=== PATIENT | male | born 1990 | race Caucasian/White ===

== ENCOUNTER 2019-01-18 04:55 | Inpatient (IN) | payer OTHER ==
[~2019-01-18] VITALS: Ht 167.6 cm; Wt 78.0 kg
[~2019-01-18 04:55] MED LIST: ACULAR 3 ML3 M1 OP; BACTRIM DS 8001 TA1 PO; CIPRO500 MG PO; TRAMADOL HCL50 MG PO
[2019-01-18 04:56] VITALS: BP 109/70
--- NOTE | 2019-01-18 05:53 | NUR ---
PT REPORTS HE IS UNABLE TO URINATE AT THIS TIME. PT GIVEN URINE CUP.
[2019-01-18 05:58] LABS: MEAN CELL VOLUME 92.8 fl (80.0-94.0); MEAN CORPUSCULAR HGB 31.6 pg (27.0-31.0); MEAN CORPUSCULAR HGB CONC 34.1 g/dl (33.0-37.0); MEAN PLATELET VOLUME 10.8 fl (9.6-12.3); PLATELET COUNT AUTOMATED 269 10*3/uL (130-400); RED BLOOD COUNT 4.74 10*6/uL (4.50-5.90); RED CELL DISTRI WIDTH 11.7 % (0-14.5); WHITE BLOOD COUNT 18.2 10*3/uL (4.8-10.8)
[2019-01-18 06:05] LABS: ALBUMIN 3.5 gm/dl (3.1-4.5); ALKALINE PHOSPHATASE 94 U/L (45-117); BUN 6 mg/dl (7-24); CHLORIDE 101 mmol/L (98-107); CREATININE 0.89 mg/dL (0.70-1.30); POTASSIUM 3.3 mmol/L (3.5-5.1); SGOT/AST 41 IU/L (3-35); SGPT/ALT 50 U/L (12-78); SODIUM 136 mmol/L (136-145); TOTAL PROTEIN 7.7 gm/dL (6.4-8.2)
[2019-01-18 06:22] LABS: PLATELET SUFFICIENCY NORMAL (NORMAL); TOTAL CELLS COUNTED 100 #CELLS
--- NOTE | 2019-01-18 07:10 | NUR ---
recieved report herbie took over careatthis time
[2019-01-18 07:31] LABS: BILIRUBIN NEGATIVE (NEGATIVE); BLOOD NEGATIVE (NEGATIVE); CLARITY CLEAR (CLEAR); COLOR YELLOW (YELLOW); GLUCOSE 1+ (NEGATIVE); KETONE NEGATIVE (NEGATIVE); LEUKO ESTERASE NEGATIVE (NEGATIVE); NITRITE NEGATIVE (NEGATIVE); PH 6.5 (5.0-9.0)
--- NOTE | 2019-01-18 07:39 | NUR ---
pt resting in bedwaitingon ct voices no complaints at this time family at bedside. call light in reach
[2019-01-18 07:46] LABS: EPITHELIAL CELLS 0-2; WBC 0-2 wbc/hpf (0-5)
--- NOTE | 2019-01-18 08:19 | NUR ---
linnea asked ctwhat the hold up is and ct is down at this time jefferson notified
--- NOTE | 2019-01-18 08:28 | NUR ---
PT TO CT AT THIS TIME
--- NOTE | 2019-01-18 09:06 | NUR ---
PT BACK IN ROOM FAMILY AT BEDSIDE TORODOL HAS HELPED PAIN A LITTLE PER PT DR ISIDRO NOTIFIED.
[2019-01-18 09:51] VITALS: BP 103/60
--- NOTE | 2019-01-18 10:00 | NUR ---
IVZOSYNINFUSING WHEN PT TAKEN TO FLOOR
[2019-01-18 10:14] VITALS: BP 105/60
--- NOTE | 2019-01-18 10:29 | NUR ---
[facility] , under the services of GAVI Bellamy DO with a diagnosis of COLITIS . Chief complaint is ABDM PAIN. Patient arrived via ambulatory from ER. Monitor applied. Initial assessment completed. Vital signs taken and recorded. GAVI BELLAMY DO notified of admission to the unit. Orders received. See assessment for past medical history, medications and allergies. Patient and/or family oriented to unit. [facility] visitation policy reviewed. Clothing/patient valuable form completed. MANDY CAVANAUGH
--- NOTE | 2019-01-18 10:53 | NUR ---
NOTIFIED DR. WILCOX OF CONSULT.
--- NOTE | 2019-01-18 11:37 | NUR ---
DR. RESE NOTIFIED OF CONSULT.
--- NOTE | 2019-01-18 13:51 | NUR ---
morphine given for c/o of abdm. pain. rates 6/10 on pain scale. will monitor.
--- NOTE | 2019-01-18 14:54 | NUR ---
JOJO EFFECTIVE PER PT.
[2019-01-18 16:00] VITALS: BP 97/50
--- NOTE | 2019-01-18 19:30 | NUR ---
PT AWAKE AND SITTING UP ON THE EDGE OF THE BED AT THIS TIME. HE STATES THAT HE IS STILL EXPERIENCING ABDOMINAL PAIN. PATIENT EDUCATED ON PRN MEDICATIONS, WILL MEDICATE PER ORDER. BS ARE HYPERACTIVE, RESPS EASY AND NONLABORED. NO OTHER S/S OF DISTRESS NOTED. BED IS LOW, CALL LIGHT WITHIN REACH. WILL CONTINUE TO MONITOR.
--- NOTE | 2019-01-18 19:53 | NUR ---
PT MEDICATED WITH PRN MORPHINE FOR C/O ABDOMINAL PAIN RATED A 9/10. WILL MONITOR FOR EFFECTIVENESS.
[2019-01-18 20:00] VITALS: BP 117/59
--- NOTE | 2019-01-18 20:04 | NUR ---
24 HR CHART CHECK COMPLETE.
--- NOTE | 2019-01-18 22:44 | NUR ---
24 HR chart check completed.
--- NOTE | 2019-01-18 22:45 | NUR ---
PT RESTING IN BED, RESPIRATIONS EASY AND UNLABORED ON ROOM AIR. IV FLUIDS INFUSING PER ORDERS. SAFETY MEASURES IN PLACE. CALL LIGHT IN REACH.
[2019-01-19] VITALS: BP 111/65
--- NOTE | 2019-01-19 01:12 | NUR ---
PT GIVEN 2 MG MORPHINE AT THIS TIME FOR C/O ABDOMINAL PAIN, RATING PAIN A 7 ON 1-10 SCALE. WILL MONITOR FOR EFFECTIVENESS. CALL LIGHT IN REACH.
--- NOTE | 2019-01-19 02:12 | NUR ---
MORPHINE EFFECTIVE PER PT.
--- NOTE | 2019-01-19 06:03 | NUR ---
MORPHINE GIVEN FOR C/O ABDOMINAL PAIN. PT RATES PAIN 7. WILL MONITOR FOR EFFECTIVENESS. CALL LIGHT IN REACH.
--- NOTE | 2019-01-19 06:50 | NUR ---
MORPHINE EFFECTIVE PER PT.
[2019-01-19 07:49] LABS: BASO % 0.2 % (0.0-1.0); EOS % 0.2 % (1.0-4.0); HEMATOCRIT 40.7 % (42.0-52.0); HEMOGLOBIN 13.7 g/dl (14.0-18.0); LYMPH # 0.9 10*3/uL (1.3-4.4); LYMPH % 7.2 % (27.0-41.0); MEAN CELL VOLUME 95.3 fl (80.0-94.0); MEAN CORPUSCULAR HGB 32.1 pg (27.0-31.0); MEAN CORPUSCULAR HGB CONC 33.7 g/dl (33.0-37.0); MEAN PLATELET VOLUME 10.5 fl (9.6-12.3); MONO # 1.1 10*3/uL (0.1-1.0); MONO % 8.5 % (3.0-9.0); NEUT # 10.5 10*3/uL (2.3-7.9); NEUT % 83.7 % (47.0-73.0); PLATELET COUNT AUTOMATED 245 10*3/uL (130-400); RED BLOOD COUNT 4.27 10*6/uL (4.50-5.90); WHITE BLOOD COUNT 12.6 10*3/uL (4.8-10.8)
[2019-01-19 08:00] VITALS: BP 104/68
[2019-01-19 08:17] LABS: ALKALINE PHOSPHATASE 78 U/L (45-117); BUN 3 mg/dl (7-24); CHLORIDE 103 mmol/L (98-107); CHOLESTEROL 145 mg/dL (<200); CREATININE 0.63 mg/dL (0.70-1.30); FREE T4 1.25 ng/dl (0.76-1.46); HDL CHOLESTEROL 21 mg/dl (40-60); LDL CHOLESTEROL 99 mg/dL (9-159); POTASSIUM 3.4 mmol/L (3.5-5.1); SGOT/AST 12 IU/L (3-35); SGPT/ALT 33 U/L (12-78); SODIUM 136 mmol/L (136-145); TOTAL PROTEIN 7.1 gm/dL (6.4-8.2); TRIGLYCERIDES 123 mg/dl (<150); VLDL CHOLESTEROL 25 mg/dL (6-40)
[2019-01-19 08:42] LABS: VITAMIN D, 25-HYDROXY 13.2 ng/mL (30-100)
--- NOTE | 2019-01-19 10:10 | NUR ---
MORPHINE 2 MG GIVEN FOR C/O ABD PAIN,08/15.
[2019-01-19 12:00] VITALS: BP 107/63
--- NOTE | 2019-01-19 12:37 | NUR ---
ZOFRAN 4 MG GIVEN FOR NAUSEA. TYLENOL 650 MG GIVEN FOR TEMP OF 100.4.
--- NOTE | 2019-01-19 14:10 | NUR ---
MORPHINE 2 MG GIVEN FOR C/O PAIN,08/15.
[2019-01-19 16:00] VITALS: BP 102/59
--- NOTE | 2019-01-19 18:09 | NUR ---
MORPHINE 2 MG GIVEN FOR C/O ABD PAIN,09/15.
--- NOTE | 2019-01-19 19:15 | NUR ---
ARRIVED ON SHIFT, INTRODUCED TO PATIENT, NO NEEDS VOICED AT THIS TIME. WHITE BOARD UPDATYED.
[2019-01-19 20:00] VITALS: BP 100/62
--- NOTE | 2019-01-19 22:42 | NUR ---
PATIENT C/O BELLY PAIN OF 6/10 MEDICATED WITH MORPHINE ORDERED.
--- NOTE | 2019-01-19 23:08 | NUR ---
Shift chart check completed.
--- NOTE | 2019-01-19 23:38 | NUR ---
GOOD RELIEF FROM MORPHINE GIVEN X 1 HOUR AGO, EVIDENCED BY PATIENT SLEEPING THROUGHOUT THE NIGHT.
[2019-01-20] VITALS: BP 103/53
--- NOTE | 2019-01-20 02:00 | NUR ---
Patient sleeping. Respirations relaxed and easy. Siderails up x 2. [place] on, bed in low position, call light within reach. DAVID MENDOZA
--- NOTE | 2019-01-20 03:47 | NUR ---
C/O ABDOMINAL PAIN 08/15 MDICATED WITH MORPHINE ORDERED PRN/
--- NOTE | 2019-01-20 04:43 | NUR ---
PATIENT HAS GOOD RELIEF FROM MORPHINE GIVEN X 1 HOUR AGO, EVIDENCED BY HIM RESTING QUIETLY WITH EYES CLOSED.
[2019-01-20 06:16] LABS: BASO % 0.3 % (0.0-1.0); EOS % 0.3 % (1.0-4.0); HEMATOCRIT 38.3 % (42.0-52.0); HEMOGLOBIN 12.8 g/dl (14.0-18.0); LYMPH # 0.8 10*3/uL (1.3-4.4); LYMPH % 7.1 % (27.0-41.0); MEAN CELL VOLUME 94.8 fl (80.0-94.0); MEAN CORPUSCULAR HGB 31.7 pg (27.0-31.0); MEAN CORPUSCULAR HGB CONC 33.4 g/dl (33.0-37.0); MONO # 1.4 10*3/uL (0.1-1.0); MONO % 11.4 % (3.0-9.0); NEUT # 9.6 10*3/uL (2.3-7.9); NEUT % 80.6 % (47.0-73.0); PLATELET COUNT AUTOMATED 250 10*3/uL (130-400); RED BLOOD COUNT 4.04 10*6/uL (4.50-5.90); RED CELL DISTRI WIDTH 12.2 % (0-14.5); WHITE BLOOD COUNT 11.9 10*3/uL (4.8-10.8)
[2019-01-20 06:49] LABS: ALBUMIN 2.5 gm/dl (3.1-4.5); ALKALINE PHOSPHATASE 67 U/L (45-117); BUN 3 mg/dl (7-24); CHLORIDE 104 mmol/L (98-107); CREATININE 0.62 mg/dL (0.70-1.30); POTASSIUM 3.4 mmol/L (3.5-5.1); SGOT/AST 7 IU/L (3-35); SGPT/ALT 21 U/L (12-78); SODIUM 140 mmol/L (136-145); TOTAL PROTEIN 6.4 gm/dL (6.4-8.2)
[2019-01-20 08:00] VITALS: BP 116/69
--- NOTE | 2019-01-20 09:16 | NUR ---
NORCO 5/325 MG GIVEN FOR C/O ABD PAIN,07/16.ZOFRAN 4 MG GIVEN FOR NAUSEA.
[2019-01-20 12:00] VITALS: BP 113/66
[2019-01-20 16:00] VITALS: BP 115/65
[2019-01-20 20:00] VITALS: BP 110/68
--- NOTE | 2019-01-20 20:59 | NUR ---
NORCO AND ZOFRAN GIVEN PER PT REQUEST FOR REPORTED PAIN OF 4/10 ABDOMINAL PAIN/TENDERNESS AND NAUSEA. CALL LIG IN REACH. WILL MONITOR EFFECTIVENESS.
[2019-01-21] VITALS: BP 93/62
[2019-01-21 06:13] LABS: BASO % 0.4 % (0.0-1.0); EOS # 0.1 10*3/uL (0.0-0.4); EOS % 1.4 % (1.0-4.0); HEMATOCRIT 38.7 % (42.0-52.0); LYMPH # 1.1 10*3/uL (1.3-4.4); MEAN CELL VOLUME 93.9 fl (80.0-94.0); MEAN CORPUSCULAR HGB 31.6 pg (27.0-31.0); MEAN CORPUSCULAR HGB CONC 33.6 g/dl (33.0-37.0); MEAN PLATELET VOLUME 10.8 fl (9.6-12.3); MONO # 0.8 10*3/uL (0.1-1.0); MONO % 9.8 % (3.0-9.0); NEUT # 6.2 10*3/uL (2.3-7.9); NEUT % 74.9 % (47.0-73.0); PLATELET COUNT AUTOMATED 291 10*3/uL (130-400); RED BLOOD COUNT 4.12 10*6/uL (4.50-5.90); RED CELL DISTRI WIDTH 12.2 % (0-14.5); WHITE BLOOD COUNT 8.3 10*3/uL (4.8-10.8)
[2019-01-21 06:28] LABS: BUN 3 mg/dl (7-24); CHLORIDE 104 mmol/L (98-107); CREATININE 0.61 mg/dL (0.70-1.30); POTASSIUM 3.1 mmol/L (3.5-5.1); SODIUM 143 mmol/L (136-145)
[2019-01-21 08:00] VITALS: BP 121/68
--- NOTE | 2019-01-21 09:00 | NUR ---
Water Main Inspector in to talk to patient. Patient states lives at home with parents. There are few steps in the home. Physician: none Pharmacy: [facility] Home health services: none Patient's level of ADLs: INDEPENDENT Patient has working utilities: all working DME: none Follow-up physician's appointment after d/c: will be made by hospitalist nurse director upon discharge with doctor of patient's choice Does patient want to access PORTAL?: no Discharge plan discussed with patient, he states he lives at home with parents he is independent in adls and ambulation works, drives, he states he will return home when medically stable and denies any home needs. ALFREDO BHATIA
--- NOTE | 2019-01-21 10:26 | NUR ---
c/o pain of 4/10 to abd. requested norco and zofran at this time. will cont to monitor. call light in reach.
--- NOTE | 2019-01-21 11:26 | NUR ---
brenda and daniela eff. will cont to monitor. call light in reach.
[2019-01-21 12:00] VITALS: BP 107/73
--- NOTE | 2019-01-21 15:10 | NUR ---
C/O PAIN OF 4/10 TO ABD. NORCO GIVEN AT THIS TIME. WILL CONT TO MONITOR. CALL LIGHT IN REACH.
[2019-01-21 16:00] VITALS: BP 117/69
[2019-01-21 20:00] VITALS: BP 113/66
--- NOTE | 2019-01-21 22:50 | NUR ---
ZOFRAN GIVEN PER PATIENT REQUEST FOR COMPLAINTS OF NAUSEA. NORCO GIVEN PER PATIENT REQUEST FOR COMPLAINTS OF STOMACH PAIN RATED 7/10. WILL ASSESS EFFECTIVENESS.
--- NOTE | 2019-01-21 23:45 | NUR ---
ZOGRACE AND NORCO EFFECTIVE PER PATIENT. WILL CONTINUE TO MONITOR.
[2019-01-22] VITALS: BP 119/61
--- NOTE | 2019-01-22 01:39 | NUR ---
Patient resting quietly with no c/o discomfort. Respirations easy and regular. Vital signs stable. No overt distress. NATE GREEN
--- NOTE | 2019-01-22 05:51 | NUR ---
NORCO GIVEN PER PATIENT REQUEST FOR COMPLAINTS OF ABDOMINAL PAIN RATED 7/10. ZOFRAN GIVEN PER PATIENT REQUEST FOR COMPLAINTS OF NAUSEA. WILL ASSESS EFFECTIVENESS.
--- NOTE | 2019-01-22 06:48 | NUR ---
TORIE AND ELADIO EFFECTIVE PER PATIENT. WILL ASSESS EFFECTIVENESS.
[2019-01-22 06:53] LABS: BASO % 0.5 % (0.0-1.0); EOS # 0.1 10*3/uL (0.0-0.4); EOS % 1.6 % (1.0-4.0); HEMATOCRIT 38.9 % (42.0-52.0); HEMOGLOBIN 13.2 g/dl (14.0-18.0); LYMPH # 1.2 10*3/uL (1.3-4.4); LYMPH % 14.7 % (27.0-41.0); MEAN CELL VOLUME 94.9 fl (80.0-94.0); MEAN CORPUSCULAR HGB 32.2 pg (27.0-31.0); MEAN CORPUSCULAR HGB CONC 33.9 g/dl (33.0-37.0); MEAN PLATELET VOLUME 10.4 fl (9.6-12.3); MONO # 0.6 10*3/uL (0.1-1.0); MONO % 7.9 % (3.0-9.0); NEUT # 6.1 10*3/uL (2.3-7.9); NEUT % 75.1 % (47.0-73.0); PLATELET COUNT AUTOMATED 345 10*3/uL (130-400); RED CELL DISTRI WIDTH 12.4 % (0-14.5); WHITE BLOOD COUNT 8.1 10*3/uL (4.8-10.8)
--- NOTE | 2019-01-22 07:05 | NUR ---
ARRIVED ON SHIFT, INTRODUCED TO PATIENT, NO NEEDS VOICED AT THIS TIME, WHITE BOARD UPDATED, REPORT RECEIVED.
[2019-01-22 07:11] LABS: BUN 3 mg/dl (7-24); CHLORIDE 103 mmol/L (98-107); CREATININE 0.66 mg/dL (0.70-1.30); POTASSIUM 3.3 mmol/L (3.5-5.1); SODIUM 141 mmol/L (136-145)
[2019-01-22 08:00] VITALS: BP 117/69
--- NOTE | 2019-01-22 09:00 | NUR ---
case management visits with patient, he stated he would be returning home when medically stable, possibly today and denies any needs
--- NOTE | 2019-01-22 09:16 | NUR ---
NEW ORDER FOR EVA, ADVISED HOSPITALIST THAT PATIENT UNABLE TO SWALLOW, AND CANT CRUSH.
--- NOTE | 2019-01-22 09:25 | NUR ---
Shift chart check completed.
[2019-01-22] MEDS ORDERED: NATURE'S BLEND F1 MG PO (11:55)
[2019-01-22] MEDS ORDERED: VITAMIN D5000 UNI1 PO (11:55)
[2019-01-22] MEDS ORDERED: CIPRO500 MG PO (11:55)
[2019-01-22] MEDS ORDERED: PHARMASSURE V500 MCG PO (11:55)
[2019-01-22] MEDS ORDERED: FLAGYL500 MG PO (11:55)
--- NOTE | 2019-01-22 12:39 | NUR ---
Discharge instructions reviewed with patient/family. Patient receptive and verbalizes understanding. Follow-up care arranged. Written instructions given to patient/family, RETURN TO WORK SLIP PROVIDED, IV REMOVED, REINFORCED KEEPING ALL APPOINTMENTS. DAVID MENDOZA
== END 2019-01-22 12:29 | disposition home or self-care (01) | DRG 872 ==
LOC: ED 04:55 → EDHOLD 09:36 → 4E 09:36
PROVIDERS: Emergency Medicine; Internal Medicine; Internal Medicine Gastroenterology; ADMIT Emergency Medicine
DX: A41.9 Sepsis, unspecified organism (principal); K52.9 Noninfective gastroenteritis and colitis, unspecified; E86.0 Dehydration; R74.0 Nonspecific elevation of levels of transaminase and lactic acid dehydrogenase [LDH]; E87.6 Hypokalemia; R73.9 Hyperglycemia, unspecified; Z80.3 Family history of malignant neoplasm of breast; Z83.79 Family history of other diseases of the digestive system; Z84.89 Family history of other specified conditions

== ENCOUNTER → 2019-02-12 | Outpatient (CLI) | payer OTHER ==
[~2019-02-12] MED LIST changes: +FLAGYL500 MG PO; +NATURE'S BLEND F1 MG PO; +PHARMASSURE V500 MCG PO; +VITAMIN D5000 UNI1 PO
== END | disposition home or self-care (01) ==
LOC: RESCLI 02:23
DX: Z09 Encounter for follow-up examination after completed treatment for conditions other than malignant neoplasm (principal); Z76.89 Persons encountering health services in other specified circumstances; K52.9 Noninfective gastroenteritis and colitis, unspecified; E55.9 Vitamin D deficiency, unspecified; E53.8 Deficiency of other specified B group vitamins; D53.9 Nutritional anemia, unspecified; Z79.899 Other long term (current) drug therapy

== ENCOUNTER → 2019-02-27 | Day surgery (SDC) | payer OTHER ==
[~2019-02-27] VITALS: Ht 170.1 cm; Wt 74.8 kg
[2019-02-27 06:55] VITALS: BP 107/64
[2019-02-27 07:40] VITALS: BP 94/47
[2019-02-27 07:50] VITALS: BP 97/62
[2019-02-27 08:08] VITALS: BP 100/60
== END | disposition home or self-care (01) ==
LOC: SDC 02-25 15:30
DX: R10.9 Unspecified abdominal pain (principal); K57.30 Diverticulosis of large intestine without perforation or abscess without bleeding; K52.9 Noninfective gastroenteritis and colitis, unspecified; E55.9 Vitamin D deficiency, unspecified; E53.8 Deficiency of other specified B group vitamins; D53.9 Nutritional anemia, unspecified; Z79.899 Other long term (current) drug therapy; Z80.3 Family history of malignant neoplasm of breast

== ENCOUNTER → 2019-03-19 | Outpatient (CLI) | payer OTHER | END | disposition home or self-care (01) | LOC: RESCLI 05:37 | DX: K57.90 Diverticulosis of intestine, part unspecified, without perforation or abscess without bleeding (principal); K52.9 Noninfective gastroenteritis and colitis, unspecified; E55.9 Vitamin D deficiency, unspecified; E53.8 Deficiency of other specified B group vitamins; D53.9 Nutritional anemia, unspecified; Z79.899 Other long term (current) drug therapy; Z87.891 Personal history of nicotine dependence ==

== ENCOUNTER 2019-12-02 09:40 | Emergency (ER) | payer SELFPAY | END 2019-12-02 10:42 | disposition home or self-care (01) | LOC: ED 09:40 | DX: S63.91XA Sprain of unspecified part of right wrist and hand, initial encounter (principal); S63.92XA Sprain of unspecified part of left wrist and hand, initial encounter; W01.0XXA Fall on same level from slipping, tripping and stumbling without subsequent striking against object, initial encounter; Y93.89 Activity, other specified; Y92.89 Other specified places as the place of occurrence of the external cause; Y99.8 Other external cause status ==

== ENCOUNTER → 2019-12-25 | Outpatient (CLI) | payer SELFPAY ==
[2019-12-25 11:06] LABS: BASO % 0.3 % (0.0-1.0); EOS # 0.1 10*3/uL (0.0-0.4); EOS % 1.1 % (1.0-4.0); HEMATOCRIT 43.1 % (42.0-52.0); LYMPH # 1.9 10*3/uL (1.3-4.4); MEAN CELL VOLUME 93.1 fl (80.0-94.0); MEAN CORPUSCULAR HGB 30.7 pg (27.0-31.0); MEAN CORPUSCULAR HGB CONC 32.9 g/dl (33.0-37.0); MEAN PLATELET VOLUME 10.8 fl (9.6-12.3); MONO # 0.5 10*3/uL (0.1-1.0); MONO % 7.2 % (3.0-9.0); NEUT # 4.2 10*3/uL (2.3-7.9); NEUT % 63.2 % (47.0-73.0); PLATELET COUNT AUTOMATED 225 10*3/uL (130-400); RED BLOOD COUNT 4.63 10*6/uL (4.50-5.90); RED CELL DISTRI WIDTH 12.5 % (0-14.5); WHITE BLOOD COUNT 6.6 10*3/uL (4.8-10.8)
[2019-12-25 12:01] LABS: BUN 6 mg/dl (7-24); CHLORIDE 105 mmol/L (98-107); CREATININE 0.69 mg/dL (0.70-1.30); POTASSIUM 4.1 mmol/L (3.5-5.1); SODIUM 141 mmol/L (136-145)
[2019-12-25 12:14] LABS: VITAMIN D, 25-HYDROXY 66.2 ng/mL (30-100)
== END | disposition home or self-care (01) ==
LOC: RESCLI 01:35
PROVIDERS: ATTEND Student in an Organized Health Care Education/Training Program
DX: K57.90 Diverticulosis of intestine, part unspecified, without perforation or abscess without bleeding (principal); K52.9 Noninfective gastroenteritis and colitis, unspecified; E55.9 Vitamin D deficiency, unspecified; E53.8 Deficiency of other specified B group vitamins; D53.9 Nutritional anemia, unspecified; Z79.899 Other long term (current) drug therapy; Z98.890 Other specified postprocedural states; Z87.891 Personal history of nicotine dependence

== ENCOUNTER → 2020-06-17 | Outpatient (CLI) | payer SELFPAY | END | disposition home or self-care (01) | LOC: RESCLI 01:39 | PROVIDERS: ATTEND Student in an Organized Health Care Education/Training Program | DX: K57.00 Diverticulitis of small intestine with perforation and abscess without bleeding (principal); E55.9 Vitamin D deficiency, unspecified; E53.8 Deficiency of other specified B group vitamins; D53.9 Nutritional anemia, unspecified; F17.200 Nicotine dependence, unspecified, uncomplicated; Z79.899 Other long term (current) drug therapy ==

== ENCOUNTER → 2022-03-02 | Outpatient (CLI) | payer OTHER ==
[2022-03-02 08:02] LABS: BASO % 0.5 % (0.0-1.0); EOS # 0.1 10*3/uL (0.0-0.4); EOS % 1.6 % (1.0-4.0); LYMPH # 2.5 10*3/uL (1.3-4.4); MEAN CELL VOLUME 92.9 fl (80.0-94.0); MEAN CORPUSCULAR HGB 32.1 pg (27.0-31.0); MEAN CORPUSCULAR HGB CONC 34.6 g/dl (33.0-37.0); MEAN PLATELET VOLUME 10.1 fl (9.6-12.3); MONO # 0.7 10*3/uL (0.1-1.0); MONO % 9.7 % (3.0-9.0); NEUT % 53.9 % (47.0-73.0); PLATELET COUNT AUTOMATED 236 10*3/uL (130-400); RED BLOOD COUNT 4.95 10*6/uL (4.50-5.90); RED CELL DISTRI WIDTH 12.2 % (0-14.5); WHITE BLOOD COUNT 7.3 10*3/uL (4.8-10.8)
[2022-03-02 08:19] LABS: ALKALINE PHOSPHATASE 62 U/L (46-116); BUN 8 mg/dl (9-23); CHLORIDE 105 mmol/L (98-107); POTASSIUM 4.1 mmol/L (3.4-5.1); SGPT/ALT 22 U/L (10-49)
[2022-03-02 09:22] LABS: VITAMIN D, 25-HYDROXY 74.1 ng/mL (30-100)
== END | disposition home or self-care (01) ==
LOC: LAB 07:47
PROVIDERS: Internal Medicine; ATTEND Internal Medicine
DX: E53.8 Deficiency of other specified B group vitamins (principal); E55.9 Vitamin D deficiency, unspecified

== ENCOUNTER → 2022-04-06 | Outpatient (CLI) | payer OTHER | END | disposition home or self-care (01) | LOC: RESCLI 01:56 | PROVIDERS: ATTEND Student in an Organized Health Care Education/Training Program | DX: E55.9 Vitamin D deficiency, unspecified (principal); K57.90 Diverticulosis of intestine, part unspecified, without perforation or abscess without bleeding; Z98.890 Other specified postprocedural states; Z79.899 Other long term (current) drug therapy ==